=== PATIENT | male | born 1975 | race Caucasian/White ===

== ENCOUNTER 2020-07-27 19:43 | Emergency (ER) | payer SELFPAY ==
[~2020-07-27] VITALS: Ht 167.7 cm; Wt 136.0 kg
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
[2020-07-27] MEDS ORDERED: TETANUS,DIPTH,PERTUSS P/F (BOOSTRIX) 0.5 ML VIAL IM ONE (20:00)
[2020-07-27] MEDS ORDERED: fentaNYL INJ 100 MCG/2 ML AMP IVP ONE (20:00)
[2020-07-27] MEDS ORDERED: ceFAZolin INJECTION 1,000 MG in WATER (STERILE) FOR INJECTION 10 ML IV ONE (20:00)
[2020-07-27] MEDS ORDERED: IOHEXOL 350 MG/ML 100 ML (OMNIPAQUE 350) VIAL IV ONE (20:15)
[2020-07-27] MEDS ORDERED: NS 100 ML (IVPB) BAG IV ONE (20:15)
[2020-07-27] MEDS ORDERED: CATHETER FLUSH 10 ML SYR IV PRN (20:15)
[2020-07-27] MEDS ORDERED: HOLD METFORMIN - RECEIVED CONTRAST 20 ML VIAL IV SCH (20:15)
[2020-07-27 20:16] LABS: HEMATOCRIT 47 % (40-54); HEMOGLOBIN 15.4 g/dL (13.3-17.7); MEAN CORPUSCULAR HEMOGLOBIN 28 pg (25-34); MEAN CORPUSCULAR HGB CONC 33 g/dL (32-36); MEAN CORPUSCULAR VOLUME 85 fL (80-99); MEAN PLATELET VOLUME 11.5 fL (9.0-12.2); PLATELET COUNT 218 10^3/uL (130-400); WHITE BLOOD COUNT 13.1 10^3/uL (4.3-11.0)
[2020-07-27 20:17] LABS: ALANINE AMINOTRANSFERASE 25 U/L (0-55); ALBUMIN 3.9 GM/DL (3.2-4.5); ALKALINE PHOSPHATASE 89 U/L (40-136); BILIRUBIN,DIRECT 0.3 MG/DL (0.0-0.3); BILIRUBIN,INDIRECT 0.3 MG/DL; BILIRUBIN,TOTAL 0.6 MG/DL (0.1-1.0); BUN/CREATININE RATIO 12; CALCIUM 8.9 MG/DL (8.5-10.1); CARBON DIOXIDE 22 MMOL/L (21-32); CHLORIDE 103 MMOL/L (98-107); CREATININE SERUM 1.07 MG/DL (0.60-1.30); GFR ESTIMATED > 60; GLUCOSE 158 MG/DL (70-105); POTASSIUM 3.3 MMOL/L (3.6-5.0); SODIUM 137 MMOL/L (135-145); TOTAL PROTEIN 7.7 GM/DL (6.4-8.2)
[2020-07-27] MEDS ORDERED: ACHD5005 PO (20:24)
[2020-07-27] MEDS ORDERED: CEPH500T PO (20:24)
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
[2020-07-27 22:00] VITALS: BP 129/78
== END 2020-07-27 22:00 | disposition home or self-care (01) ==
LOC: ER 19:46
DX: S81.832A Puncture wound without foreign body, left lower leg, initial encounter (principal); Z23 Encounter for immunization; W34.00XA Accidental discharge from unspecified firearms or gun, initial encounter
CPT/HCPCS: 71045; 73562; 73706; 80048; 80076; 85027; 86850; 86900; 86901; 93041; 99285; A6223; G0480; 36415; 80320; 90715